=== PATIENT | female | born 1945 ===

== ENCOUNTER 2018-11-24 08:12 | Inpatient (IN) | payer OTHER ==
[~2018-11-24] VITALS: Ht 160 cm; Wt 77.1 kg
[2018-11-24] MEDS ORDERED: TAPAZOLE PO (09:25)
[2018-11-24] MEDS ORDERED: [UNRECOGNIZED DRUG - OTHER] PO (09:26)
[2018-11-24] MEDS ORDERED: TOPROL XL50 M1 PO (09:26)
[2018-11-24] MEDS ORDERED: TAPAZOLE5 M1 PO (09:26)
[2018-11-24] MEDS ORDERED: LIPITOR20 MG PO (09:27)
[2018-11-24] MEDS ORDERED: SINGULAIR 10MG10 MG PO (09:27)
[2018-11-24] MEDS ORDERED: COZAAR50 MG PO (09:27)
[2018-11-24] MEDS ORDERED: NORVASC10 MG PO (09:28)
[2018-11-24] MEDS ORDERED: ARIMIDEX PO (09:53)
[2018-12-04] MEDS ORDERED: ANASTROZOLE1 MG PO (08:00)
[2018-12-04] MEDS ORDERED: TRIAMTERENE-HC1 EAC1 PO (08:04)
== END 2018-12-06 17:05 | DRG 470 ==
LOC: ADM 12-01 08:30 → SURH 12-04 05:55 → O/R 12-04 05:55 → SURH 12-04 08:30 → CIR.AMB 12-04 08:30 → EDSTATUS 12-04 08:30 → SURH 12-04 15:39
PROVIDERS: ADMIT Orthopaedic Surgery
PROC: 0SRC0J9 Replacement of Right Knee Joint with Synthetic Substitute, Cemented, Open Approach (ICD-10-PCS; principal; 2018-12-04 11:00)
DX: M17.11 Unilateral primary osteoarthritis, right knee (principal); M81.0 Age-related osteoporosis without current pathological fracture